=== PATIENT | female | born 1930 | race Caucasian/White ===

== ENCOUNTER 2016-10-14 10:07 | Inpatient (IN) | payer OTHER, MEDICARE ==
[~2016-10-14] VITALS: Ht 144.8 cm; Wt 65.0 kg
[~2016-10-14 10:07] MED LIST: KEFLEX500 MG PO; VICODIN 5-3001 EACH PO
[2016-10-14] MEDS ORDERED: BP (10:26)
[2016-10-14] MEDS ORDERED: PRILOSEC20 MG PO (10:27)
[2016-10-14] MEDS ORDERED: PULMICORT FLE180 MCG IH (10:27)
[2016-10-14 10:56] LABS: EOSINOPHIL (%) 0 % (0-5); HEMATOCRIT 45.1 % (36.0-46.0); IMMATURE GRANULOCYTE (%) 0.1 % (0.0-0.7); IMMATURE GRANULOCYTE COUNT 0.1 K/uL; MCH 29.7 PG (29.0-34.0); MCHC 32.4 G/DL (30.0-36.0); MCV 91.9 FL (83-99); MEAN PLAT.VOLUME 10.2 uM^3 (9.5-12.4); MONOCYTE COUNT 0.7 K/uL (0-0.8); NEUTROPHIL (%) 85.4 % (45-76); NEUTROPHIL COUNT 9.8 K/uL (1.8-6.4); PLATELET COUNT 301 K/uL (156-360); RBC DIS.WIDTH-SD 46.1 % (39-53); RED BLOOD COUNT 4.91 M/uL (3.80-5.20); WHITE BLOOD COUNT 11.5 K/uL (4.1-10.2)
[2016-10-14 11:05] LABS: CHLORIDE 106 mEq/L (99-109); SODIUM 139 mEq/L (136-147)
[2016-10-14 11:07] LABS: GLUCOSE 116 mg/dL (70-99)
[2016-10-14 11:08] LABS: ANION GAP 12 MEQ/L (2-14)
[2016-10-14 11:09] LABS: TOTAL BILIRUBIN 0.8 mg/dL (0.0-1.0)
[2016-10-14 11:11] LABS: ALKALINE PHOSPHATASE 110 IU/L (3-129); GFR ESTIMATE (CALCULATED) 56 mL/min/
[2016-10-14 11:12] LABS: UREA NITROGEN (BUN) 23 mg/dL (9-23)
[2016-10-14 11:14] LABS: ADD MIUA? YES; BILIRUBIN NEGATIVE; BLOOD SMALL; COLOR YELLOW ((YELLOW)); GLUCOSE (STRIP) NEGATIVE; KETONES NEGATIVE; LEUKOCYTES MODERATE; NITRITE NEGATIVE; PROTEIN (STRIP) NEGATIVE; SPECIFIC GRAVITY 1.012 (1.000-1.030); UROBILINOGEN 0.2 MG/DL (0.2-1.0)
[2016-10-14 11:14] LABS: CREATINE KINASE 240 IU/L (1-294)
[2016-10-14 11:20] LABS: TROP-I INTERPRETATION NEGATIVE; TROPONIN-I 0.06 ng/mL (0.0-0.30)
[2016-10-14 11:26] LABS: BACTERIA RARE /HPF; EPITHELIAL CELLS RARE /HPF; HYALINE CASTS 0-5 /LPF; MUCUS TRACE /LPF; RED BLOOD CELLS 0-5 /HPF (0-5); WHITE BLOOD CELLS 0-5 /HPF (0-5)
[2016-10-14] MEDS ORDERED: ZITHROMAX500 MG PO (11:41)
[2016-10-14] MEDS ORDERED: CEFTIN500 MG PO (11:41)
[2016-10-14] MEDS ORDERED: LISINOPRIL-HCT1 EAC3 PO (12:48)
[2016-10-14] MEDS ORDERED: CALCIUM 600 +1 EAC3 PO (12:49)
[2016-10-14] MEDS ORDERED: ARTIFICIAL TEAR15 M1 BOTH EYES (12:50)
[2016-10-14] MEDS ORDERED: TYLENOL EXTRA500 MG PO (12:50)
[2016-10-14 19:51] VITALS: BP 147/99
[2016-10-14 23:52] VITALS: BP 126/70
[2016-10-15 03:20] VITALS: BP 127/63
[2016-10-15 07:35] VITALS: BP 145/76
[2016-10-15 12:20] VITALS: BP 160/81
[2016-10-15 16:46] VITALS: BP 173/80
[2016-10-15 20:21] VITALS: BP 131/73
[2016-10-15 23:41] VITALS: BP 146/95
[2016-10-16 03:57] VITALS: BP 156/77
[2016-10-16 03:58] VITALS: BP 142/70
[2016-10-16 07:20] VITALS: BP 143/81
[2016-10-16 15:57] VITALS: BP 136/63
[2016-10-16 23:40] VITALS: BP 157/74
[2016-10-17 07:10] VITALS: BP 131/70
[2016-10-17 10:50] VITALS: BP 155/87
[2016-10-17 16:00] VITALS: BP 109/63
[2016-10-17 23:21] VITALS: BP 125/72
[2016-10-18 06:46] LABS: HEMATOCRIT 42.3 % (36.0-46.0); MCH 30.5 PG (29.0-34.0); MCHC 32.6 G/DL (30.0-36.0); MCV 93.4 FL (83-99); MEAN PLAT.VOLUME 10.7 uM^3 (9.5-12.4); PLATELET COUNT 295 K/uL (156-360); RBC DIS.WIDTH-SD 47.8 % (39-53); RED BLOOD COUNT 4.53 M/uL (3.80-5.20)
[2016-10-18 06:47] LABS: WHITE BLOOD COUNT 7.8 K/uL (4.1-10.2)
[2016-10-18 07:03] LABS: ALKALINE PHOSPHATASE 75 IU/L (3-129); ANION GAP 8 MEQ/L (2-14); CHLORIDE 102 MEQ/L (99-109); GFR ESTIMATE (CALCULATED) 56 mL/min/; GLUCOSE 100 mg/dL (70-99); POTASSIUM 4.5 MEQ/L (3.7-5.4); SAMPLE HEMOLYSIS CHECK 0; SAMPLE ICTERIC CHECK 0; SAMPLE LIPEMIA CHECK 0; SODIUM 137 MEQ/L (136-147); TOTAL BILIRUBIN 0.9 MG/DL (0.0-1.0); UREA NITROGEN (BUN) 22 mg/dL (9-23)
[2016-10-18 07:30] VITALS: BP 154/77
[2016-10-18 14:55] VITALS: BP 126/63
[2016-10-19 00:06] VITALS: BP 127/70; BP 127/71
[2016-10-19 07:15] VITALS: BP 133/74
[2016-10-19 15:45] VITALS: BP 111/57
[2016-10-19 23:00] LABS: MCH 29.7 PG (29.0-34.0); MCV 92.8 FL (83-99); MEAN PLAT.VOLUME 10.4 uM^3 (9.5-12.4); PLATELET COUNT 290 K/uL (156-360); RBC DIS.WIDTH-SD 46.3 % (39-53); RED BLOOD COUNT 4.74 M/uL (3.80-5.20); WHITE BLOOD COUNT 9.5 K/uL (4.1-10.2)
[2016-10-19 23:10] LABS: CHLORIDE 101 mEq/L (99-109); POTASSIUM 4.5 mEq/L (3.7-5.4); SODIUM 135 mEq/L (136-147)
[2016-10-19 23:12] LABS: PROTHROMBIN TIME 10.3 (9.2-11.2); PTT 26.8 (25-32)
[2016-10-19 23:12] LABS: GLUCOSE 125 mg/dL (70-99)
[2016-10-19 23:13] LABS: ANION GAP 9 MEQ/L (2-14)
[2016-10-19 23:16] LABS: ALKALINE PHOSPHATASE 118 IU/L (3-129); GFR ESTIMATE (CALCULATED) 45 mL/min/
[2016-10-19 23:17] LABS: UREA NITROGEN (BUN) 26 mg/dL (9-23)
[2016-10-20] VITALS: BP 113/61
[2016-10-20 04:00] VITALS: BP 137/62
[2016-10-20 07:09] LABS: MCH 30.5 PG (29.0-34.0); MCHC 32.3 G/DL (30.0-36.0); MCV 94.3 FL (83-99); MEAN PLAT.VOLUME 10.9 uM^3 (9.5-12.4); PLATELET COUNT 280 K/uL (156-360); RBC DIS.WIDTH-SD 48.1 % (39-53); RED BLOOD COUNT 4.56 M/uL (3.80-5.20); WHITE BLOOD COUNT 8.6 K/uL (4.1-10.2)
[2016-10-20 07:46] LABS: ALKALINE PHOSPHATASE 98 IU/L (3-129); ANION GAP 7 MEQ/L (2-14); CHLORIDE 99 MEQ/L (99-109); GFR ESTIMATE (CALCULATED) 56 mL/min/; GLUCOSE 97 mg/dL (70-99); POTASSIUM 4.7 MEQ/L (3.7-5.4); SAMPLE HEMOLYSIS CHECK 0; SAMPLE ICTERIC CHECK 0; SAMPLE LIPEMIA CHECK 0; SODIUM 134 MEQ/L (136-147); TOTAL BILIRUBIN 0.8 MG/DL (0.0-1.0); UREA NITROGEN (BUN) 27 mg/dL (9-23)
[2016-10-20 07:49] VITALS: BP 137/62
[2016-10-20 11:03] VITALS: BP 136/68
[2016-10-20 16:31] VITALS: BP 118/71
[2016-10-20 20:04] VITALS: BP 106/55
[2016-10-21 00:03] VITALS: BP 103/55
[2016-10-21 03:50] VITALS: BP 88/53
[2016-10-21 04:30] VITALS: BP 133/65
[2016-10-21 07:57] VITALS: BP 101/58
[2016-10-21 11:30] VITALS: BP 129/66
[2016-10-21 12:02] LABS: HDL CHOLESTEROL 51 MG/DL (Desirable>=50); LDL CHOLESTEROL 97 mg/dL (Desirable<100); NON-HDL CHOLESTEROL 117 mg/dL (Desirable<160); TOTAL CHOLESTEROL 168 mg/dL (Desirable<200); TRIGLYCERIDES 101 MG/DL (Normal: <150)
[2016-10-21 14:10] LABS: Estimated Average Glucose 94 mg/dL (70-123); HEMOGLOBIN A1c (GLYCOHEMOGLOB) 4.9 % HGB (Below 5.7)
[2016-10-21] MEDS ORDERED: ASPIR-LOW81 MG PO (14:31)
[2016-10-21] MEDS ORDERED: LOVENOX30 MG/0.3 SC (14:31)
[2016-10-21] MEDS ORDERED: CLOPIDOGREL75 MG PO (14:31)
[2016-10-21] MEDS ORDERED: TYLENOL REGULA325 MG PO (14:31)
[2016-10-21] MEDS ORDERED: TRAZODONE HCL50 MG PO (14:32)
[2016-10-21] MEDS ORDERED: PANTOPRAZOLE SO40 MG PO (14:33)
[2016-10-21] MEDS ORDERED: LEVAQUIN500 MG PO (14:34)
[2016-10-21] MEDS ORDERED: ATORVASTATIN CA20 MG PO (14:41)
[2016-10-21] MEDS ORDERED: FLOVENT 11120 INHALA IH (17:31)
== END 2016-10-21 16:10 | DRG 64 ==
LOC: EME → EDBD 10:07 → EME 10:07 → 2EAST 13:44 → EDOF 13:44 → 2EAST 17:42 → 5SOUTH 10-20 15:20
PROVIDERS: Emergency Medicine; Internal Medicine
DX: I63.522 Cerebral infarction due to unspecified occlusion or stenosis of left anterior cerebral artery (principal); J18.9 Pneumonia, unspecified organism; G83.11 Monoplegia of lower limb affecting right dominant side; E11.9 Type 2 diabetes mellitus without complications; E66.01 Morbid (severe) obesity due to excess calories; F51.4 Sleep terrors [night terrors]; I10 Essential (primary) hypertension; M19.90 Unspecified osteoarthritis, unspecified site; M81.0 Age-related osteoporosis without current pathological fracture; M79.609 Pain in unspecified limb; R26.2 Difficulty in walking, not elsewhere classified; Z68.31 Body mass index [BMI] 31.0-31.9, adult
CPT/HCPCS: 70450; 70551; 71010; 71020; 71250; 72148; 80053; 80061; 81003; 82550; 82948; 83036; 83605; 84484; 85025; 85027; 85379; 85610; 85730; 87040; 93005; 93306; 93880; 93970; 94640; 94640 76; 97530 GO; 99202; 99281; 99285; J0456; J0692; J0696; J1650; J7040; J7050

== ENCOUNTER 2016-10-21 14:06 | Inpatient (IN) | payer OTHER, MEDICARE ==
[~2016-10-21] VITALS: Ht 144.8 cm; Wt 58.5 kg
[~2016-10-21 14:06] MED LIST changes: +ARTIFICIAL TEAR15 M1 BOTH EYES; +BP; +CALCIUM 600 +1 EAC3 PO; +CEFTIN500 MG PO; +LISINOPRIL-HCT1 EAC3 PO; +PRILOSEC20 MG PO; +PULMICORT FLE180 MCG IH; +TYLENOL EXTRA500 MG PO; +ZITHROMAX500 MG PO
[2016-10-21] MEDS ORDERED: LOVENOX30 MG/0.3 SC (14:31)
[2016-10-21] MEDS ORDERED: ASPIR-LOW81 MG PO (14:31)
[2016-10-21] MEDS ORDERED: TYLENOL REGULA325 MG PO (14:31)
[2016-10-21] MEDS ORDERED: CLOPIDOGREL75 MG PO (14:31)
[2016-10-21] MEDS ORDERED: TRAZODONE HCL50 MG PO (14:32)
[2016-10-21] MEDS ORDERED: PANTOPRAZOLE SO40 MG PO (14:33)
[2016-10-21] MEDS ORDERED: LEVAQUIN500 MG PO (14:34)
[2016-10-21] MEDS ORDERED: ATORVASTATIN CA20 MG PO (14:41)
[2016-10-21 17:09] VITALS: BP 163/58
[2016-10-21] MEDS ORDERED: FLOVENT 11120 INHALA IH (17:31)
[2016-10-22 00:43] VITALS: BP 103/55
[2016-10-22 05:13] VITALS: BP 109/66
[2016-10-22 05:29] LABS: HEMATOCRIT 42.7 % (36.0-46.0); MCH 29.3 PG (29.0-34.0); MCHC 31.1 G/DL (30.0-36.0); MCV 94.1 FL (83-99); MEAN PLAT.VOLUME 10.9 uM^3 (9.5-12.4); PLATELET COUNT 299 K/uL (156-360); RBC DIS.WIDTH-CV 14.1 % (11.8-14.6); RBC DIS.WIDTH-SD 48.5 % (39-53); RED BLOOD COUNT 4.54 M/uL (3.80-5.20)
[2016-10-22 05:51] LABS: ALKALINE PHOSPHATASE 105 IU/L (3-129); ANION GAP 9 MEQ/L (2-14); CHLORIDE 100 MEQ/L (99-109); GFR ESTIMATE (CALCULATED) 45 mL/min/; GLUCOSE 99 mg/dL (70-99); SAMPLE HEMOLYSIS CHECK 1; SAMPLE ICTERIC CHECK 0; SAMPLE LIPEMIA CHECK 0; SODIUM 134 MEQ/L (136-147); UREA NITROGEN (BUN) 33 mg/dL (9-23)
[2016-10-22 05:54] LABS: POTASSIUM 4.7 MEQ/L (3.7-5.4); TOTAL BILIRUBIN 0.7 MG/DL (0.0-1.0)
[2016-10-22 10:22] VITALS: BP 110/60
[2016-10-22 15:16] VITALS: BP 102/60
[2016-10-23 05:39] VITALS: BP 141/75
[2016-10-23 15:15] VITALS: BP 105/56
[2016-10-24 05:59] VITALS: BP 110/61
[2016-10-24 07:49] VITALS: BP 124/62
[2016-10-24 15:41] VITALS: BP 124/62
[2016-10-25 05:47] VITALS: BP 112/58
[2016-10-25 15:19] VITALS: BP 126/69
[2016-10-26 05:55] VITALS: BP 102/60
[2016-10-26 09:40] VITALS: BP 119/65
[2016-10-26 15:51] VITALS: BP 111/61
[2016-10-27 04:56] LABS: HEMATOCRIT 42.7 % (36.0-46.0); MCH 29.2 PG (29.0-34.0); MCHC 31.6 G/DL (30.0-36.0); MCV 92.4 FL (83-99); MEAN PLAT.VOLUME 10.2 uM^3 (9.5-12.4); PLATELET COUNT 366 K/uL (156-360); RBC DIS.WIDTH-CV 13.2 % (11.8-14.6); RBC DIS.WIDTH-SD 45.1 % (39-53); RED BLOOD COUNT 4.62 M/uL (3.80-5.20); WHITE BLOOD COUNT 8.4 K/uL (4.1-10.2)
[2016-10-27 05:06] LABS: CHLORIDE 101 mEq/L (99-109); SODIUM 136 mEq/L (136-147)
[2016-10-27 05:09] LABS: GLUCOSE 104 mg/dL (70-99)
[2016-10-27 05:10] LABS: ANION GAP 8 MEQ/L (2-14)
[2016-10-27 05:11] LABS: TOTAL BILIRUBIN 0.7 mg/dL (0.0-1.0)
[2016-10-27 05:12] LABS: ALKALINE PHOSPHATASE 112 IU/L (3-129); GFR ESTIMATE (CALCULATED) 38 mL/min/
[2016-10-27 05:13] LABS: UREA NITROGEN (BUN) 26 mg/dL (9-23)
[2016-10-27 06:29] VITALS: BP 126/78
[2016-10-27 15:20] VITALS: BP 104/57
[2016-10-28 05:01] VITALS: BP 111/57
[2016-10-28 10:41] VITALS: BP 121/64
[2016-10-28 15:20] VITALS: BP 116/65
[2016-10-29 05:16] VITALS: BP 105/56
[2016-10-29 08:04] VITALS: BP 110/65
[2016-10-29 15:48] VITALS: BP 99/57
[2016-10-29 20:33] VITALS: BP 145/70
[2016-10-30 05:39] VITALS: BP 126/65
[2016-10-30 10:48] VITALS: BP 112/70
[2016-10-30 15:33] VITALS: BP 103/59
[2016-10-31 05:01] LABS: HEMATOCRIT 41.5 % (36.0-46.0); MCH 29.1 PG (29.0-34.0); MCHC 31.1 G/DL (30.0-36.0); MCV 93.5 FL (83-99); MEAN PLAT.VOLUME 10.2 uM^3 (9.5-12.4); PLATELET COUNT 370 K/uL (156-360); RBC DIS.WIDTH-CV 13.2 % (11.8-14.6); RBC DIS.WIDTH-SD 45.4 % (39-53); RED BLOOD COUNT 4.44 M/uL (3.80-5.20); WHITE BLOOD COUNT 8.2 K/uL (4.1-10.2)
[2016-10-31 05:12] LABS: CHLORIDE 101 mEq/L (99-109); POTASSIUM 5.1 mEq/L (3.7-5.4); SODIUM 136 mEq/L (136-147)
[2016-10-31 05:15] LABS: GLUCOSE 94 mg/dL (70-99)
[2016-10-31 05:16] LABS: ANION GAP 7 MEQ/L (2-14)
[2016-10-31 05:17] LABS: TOTAL BILIRUBIN 0.6 mg/dL (0.0-1.0)
[2016-10-31 05:18] LABS: ALKALINE PHOSPHATASE 103 IU/L (3-129); GFR ESTIMATE (CALCULATED) 56 mL/min/
[2016-10-31 05:19] LABS: UREA NITROGEN (BUN) 21 mg/dL (9-23)
[2016-10-31 05:51] VITALS: BP 121/62
[2016-10-31 08:03] VITALS: BP 149/99
[2016-10-31 08:34] VITALS: BP 118/72
[2016-10-31] MEDS ORDERED: CLOPIDOGREL75 MG PO (13:47)
[2016-10-31] MEDS ORDERED: ATORVASTATIN CA20 MG PO (13:47)
[2016-10-31] MEDS ORDERED: PANTOPRAZOLE SO40 MG PO (13:47)
[2016-10-31] MEDS ORDERED: LISINOPRIL-HCT1 EAC3 PO (13:47)
[2016-10-31 16:00] VITALS: BP 139/72
[2016-11-01 05:12] VITALS: BP 112/57
[2016-11-01 09:43] VITALS: BP 146/75
== END 2016-11-01 14:37 | disposition home health service (06) | DRG 945 ==
LOC: 3WEST 14:06
PROVIDERS: Internal Medicine; Physical Medicine & Rehabilitation Pain Medicine
PROC: F07M7ZZ Manual Therapy Techniques Treatment of Musculoskeletal System - Whole Body (ICD-10-PCS; principal; 2016-10-21)
DX: R53.1 Weakness (principal); I63.9 Cerebral infarction, unspecified; G81.91 Hemiplegia, unspecified affecting right dominant side; M41.9 Scoliosis, unspecified; I10 Essential (primary) hypertension; E11.9 Type 2 diabetes mellitus without complications; M19.90 Unspecified osteoarthritis, unspecified site; M81.0 Age-related osteoporosis without current pathological fracture; M51.36 Other intervertebral disc degeneration, lumbar region; G47.00 Insomnia, unspecified; F51.4 Sleep terrors [night terrors]; Z79.01 Long term (current) use of anticoagulants; Z87.01 Personal history of pneumonia (recurrent)
CPT/HCPCS: 80053; 85027; 92523 GN; 94640; 94640 76; 97110 GO; 97530 GP; 99202; J1650